=== PATIENT | female | born 1990 | race Hispanic/Latino ===

== ENCOUNTER 2019-10-18 05:00 | Emergency (ER) | payer BC, OTHER | END 2019-10-18 05:50 | LOC: EDH 05:00 | DX: Z02.83 Encounter for blood-alcohol and blood-drug test (principal); F41.9 Anxiety disorder, unspecified; Z72.0 Tobacco use ==

== ENCOUNTER 2021-07-13 16:50 | Emergency (ER) | payer MEDICAID ==
[~2021-07-13] VITALS: Ht 160 cm; Wt 63.5 kg
[2021-07-13] MEDS ORDERED: IBUP-1552 PO (18:43)
[2021-07-13 18:57] VITALS: BP 111/79
[2021-07-13] MEDS ORDERED: IBUPROFEN 800 MG TAB PO ONE (19:00)
== END 2021-07-13 18:56 ==
LOC: EDH 16:50
DX: S60.221A Contusion of right hand, initial encounter (principal); S60.222A Contusion of left hand, initial encounter; Z79.1 Long term (current) use of non-steroidal anti-inflammatories (NSAID); Z90.49 Acquired absence of other specified parts of digestive tract; Y35.893A Legal intervention involving other specified means, suspect injured, initial encounter; Y93.89 Activity, other specified; Y92.89 Other specified places as the place of occurrence of the external cause; Y99.8 Other external cause status
CPT/HCPCS: 73130